=== PATIENT | female | born 1955 | race African-American/Black ===

== ENCOUNTER → 2020-02-20 11:07 | Outpatient (BNVA) | payer OTHER, SELFPAY | PROVIDERS: PCP Internal Medicine; Visit Provider Hospitalist | DX: Z13.89 Encounter for screening for other disorder (principal) | CPT/HCPCS: Q3014 ==

== ENCOUNTER → 2020-08-19 10:59 | Outpatient (BNVA) | payer OTHER, SELFPAY | PROVIDERS: PCP Internal Medicine; Visit Provider Hospitalist | DX: J33.9 Nasal polyp, unspecified (principal); J45.50 Severe persistent asthma, uncomplicated | CPT/HCPCS: 99212 ==

== ENCOUNTER → 2021-04-21 11:00 | Outpatient (BNVA) | payer OTHER, SELFPAY | PROVIDERS: PCP Internal Medicine; Visit Provider Hospitalist | DX: J45.50 Severe persistent asthma, uncomplicated (principal); J33.9 Nasal polyp, unspecified; G47.33 Obstructive sleep apnea (adult) (pediatric); Z99.89 Dependence on other enabling machines and devices | CPT/HCPCS: 99212 ==

== ENCOUNTER → 2022-04-13 10:57 | Outpatient (BNVA) | payer OTHER, SELFPAY | PROVIDERS: PCP Internal Medicine; Visit Provider Hospitalist | DX: J45.50 Severe persistent asthma, uncomplicated (principal); J33.9 Nasal polyp, unspecified; G47.33 Obstructive sleep apnea (adult) (pediatric); Z79.899 Other long term (current) drug therapy; Z99.89 Dependence on other enabling machines and devices | CPT/HCPCS: 99212 ==

== ENCOUNTER 2022-10-12 10:51 | Outpatient (AMB) | payer OTHER, SELFPAY ==
[2022-10-12 11:00] VITALS: BP 128/60; PULSE 90; O2SAT 98; BMI 29.2
--- NOTE | 2022-10-12 11:00 | A.OFFVIS_ITS ---
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 She is on maximum respiratory therapy at this time. She did take Nucala for some time but it was not working any longer. She has been on Fosenra now for a couple months. This appears to be more effective for her. She is breathing better. Although, she still has a significant nasal polyposis. She will try some Sudafed. She is continue with the 90 bilateral and also with budesonide rinsing. 10/19/2019. The patient is here for pulmonary follow-up visit. She has continued on her respiratory regimen. She is continue on the Fosenra every 2 months. However, her nasal polyposis has not gotten any better. Actually have gotten worse based on her ENT visit. Therefore, the Fosenra is only partially helping her symptoms. We did do blood work recently demonstrating that her eosinophils have improved on the Fosenra however, her IgE level was indeed elevated. At this time Dupixent will be a better medication for her based on the fact that she still has significant symptoms from her nasal polyposis. The patient is agreeable to switch over to Dupixent at this time. 10/12/2022 the patient is here for a pulmonary follow-up visit. Overall she is continues to do very well on the Dupixent. She has not required any prednisone or any rescue albuterol. Her nasal polyps have significantly decreased sided in her breathing is significantly better. In the meantime she received her replacement CPAP. She does have a [employer] dream station 2. The CPAP therapy has been effective and beneficial. She does use it for more than 4 hours a night. [facility] Medical History (Updated 10/12/22 @ 11:25 by Jayden Gaytan MD) Murmur Nasal polyps FROILAN on CPAP Severe persistent asthma Social History (Updated 08/19/20 @ 11:06 by JOSHUA Knight) Patient Tobacco Use Status: Never used Tobacco Review of Systems Const Denies night sweats ENT Denies change in voice, Denies lip swelling, Denies mouth pain, Reports nasal congestion, Reports nasal discharge and Denies tongue swelling Card Denies chest pain Resp Denies chest congestion and Reports cough GI Denies abdominal pain Musc Denies no additional complaints Neuro Denies Neuro-related abnormal movements Psych Denies no additional complaints Weston/Lymph Denies easy bleeding and Denies lymphadenopathy Aller/Immun Denies lip swelling and Denies tongue swelling Physical Exam Vital Signs: Last Vital Signs Pulse 90 10/12/22 11:00 BP 128/60 10/12/22 11:00 Pulse Ox 98 10/12/22 11:00 Oxygen Delivery Method Room Air 10/12/22 11:00 BMI result Body Mass Index 29.2 Const General: alert HEENT General nose exam: No nasal polyps present, Abnormal mucous membranes and turbinates present boggy and erythematous, Nasal discharge present and no nasal polyps Neck Neck: Yes normal visual inspection, Yes full ROM and Yes no lymphadenopathy Chest Chest palpation & inspection: normal inspection of the chest Resp Auscultation: clear to auscultation bilaterally, no rhonchi and no wheezes Cardio Rate: regular rate Rhythm: regular rhythm Heart sounds: S1 normal heart sound present, S2 normal heart sound present and Murmur heart sound present systolic II/ and at the right sternal border GI Palpation (GI): Soft to palpation and nontender Auscultation: normal bowel sounds Skin General skin exam: rashes and/or lesions noted Assessment & Plan Assessment & Plan (1) Nasal polyps: Comment: better Code(s): J33.9 - Nasal polyp, unspecified (2) Severe persistent asthma: Code(s): J45.50 - Severe persistent asthma, uncomplicated Qualifiers: Asthma complication type: uncomplicated Qualified Code(s): J45.50 - Severe persistent asthma, uncomplicated (3) FROILAN on CPAP: Code(s): G47.33 - Obstructive sleep apnea (adult) (pediatric); Z99.89 - Dependence on other enabling machines and devices (4) Murmur: Code(s): R01.1 - Cardiac murmur, unspecified Plan Continue Dupixent every 2 weeks continue singular to 5 mg daily, ok to take seasonally (Summer is her worse season. Better in the winter) Continue Zyrtec Nebulized therapy as needed CPAP, Dream station 2 F/U with PCP re: murmur Follow-up in the Spring 2023 Coding Level of Care Code Est Pt Level 4 (50954) Diagnoses Nasal polyps J33.9 Severe persistent asthma J45.50 Asthma complication type: uncomplicated FROILAN on CPAP G47.33; Z99.89 Murmur R01.1
== END 2022-10-12 11:31 | disposition home or self-care (01) ==
PROVIDERS: PCP Internal Medicine; Visit Provider Hospitalist
DX: J33.9 Nasal polyp, unspecified (principal); J45.50 Severe persistent asthma, uncomplicated; G47.33 Obstructive sleep apnea (adult) (pediatric); Z99.89 Dependence on other enabling machines and devices; R01.1 Cardiac murmur, unspecified
CPT/HCPCS: 99214

== ENCOUNTER → 2022-10-12 10:51 | Outpatient (BNVA) | payer OTHER, SELFPAY | PROVIDERS: Visit Provider Hospitalist | DX: J45.50 Severe persistent asthma, uncomplicated (principal); J33.9 Nasal polyp, unspecified; G47.33 Obstructive sleep apnea (adult) (pediatric); R01.1 Cardiac murmur, unspecified; Z79.899 Other long term (current) drug therapy; Z99.89 Dependence on other enabling machines and devices | CPT/HCPCS: 99212 ==

== ENCOUNTER 2023-06-14 10:50 | Outpatient (AMB) | payer OTHER, SELFPAY ==
[2023-06-14 10:55] VITALS: PULSE 90; O2SAT 95; BMI 29.2
--- NOTE | 2023-06-14 10:55 | MHC.OFFVIS ---
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 She is on maximum respiratory therapy at this time. She did take Nucala for some time but it was not working any longer. She has been on Fosenra now for a couple months. This appears to be more effective for her. She is breathing better. Although, she still has a significant nasal polyposis. She will try some Sudafed. She is continue with the 90 bilateral and also with budesonide rinsing. 10/19/2019. The patient is here for pulmonary follow-up visit. She has continued on her respiratory regimen. She is continue on the Fosenra every 2 months. However, her nasal polyposis has not gotten any better. Actually have gotten worse based on her ENT visit. Therefore, the Fosenra is only partially helping her symptoms. We did do blood work recently demonstrating that her eosinophils have improved on the Fosenra however, her IgE level was indeed elevated. At this time Dupixent will be a better medication for her based on the fact that she still has significant symptoms from her nasal polyposis. The patient is agreeable to switch over to Dupixent at this time. 10/12/2022 the patient is here for a pulmonary follow-up visit. Overall she is continues to do very well on the Dupixent. She has not required any prednisone or any rescue albuterol. Her nasal polyps have significantly decreased sided in her breathing is significantly better. In the meantime she received her replacement CPAP. She does have a [email or web address] dream station 2. The CPAP therapy has been effective and beneficial. She does use it for more than 4 hours a night. 06/14/2023 the patient is here for pulmonary follow-up visit. Overall she is doing well. She continues on Dupixent is very affecting beneficial. Although she has been noticing increasing nasal congestion. This has been happening for the last few weeks. Likely secondary to the transition to the springtime. She keeps the Dupixent every 2 weeks. She is wondering about extending but I did not recommend she do that since the medication wears off and then she starts becoming symptomatic. The patient needs to start nasal therapy. Will provide her with allergy and cortical steroid therapy for her nose. If the patient is no better she will call the office. The meantime she has been using the CPAP. The CPAP therapy continues be very affecting beneficial. She does have a dream Station so I do not have access to download the therapy although she states that it works very well for her. She does use it between 8-10 hours sometimes. And she does wake up rested. Her [place] score is 5/24. Therefore the therapy as effective. She will continue to use it as prescribed. [facility] Medical History (Updated 10/12/22 @ 11:25 by Jayden Gaytan MD) Murmur FROILAN on CPAP Nasal polyps Severe persistent asthma Social History (Updated 08/19/20 @ 11:06 by JOSHUA Knight) Patient Tobacco Use Status: Never used Tobacco Review of Systems Const Denies night sweats ENT Denies change in voice, Denies lip swelling, Denies mouth pain, Reports nasal congestion, Reports nasal discharge, Reports nasal obstruction, Reports post nasal drip and Denies tongue swelling Card Denies chest pain Resp Denies chest congestion and Reports cough GI Denies abdominal pain Musc Denies no additional complaints Neuro Denies Neuro-related abnormal movements Psych Denies no additional complaints Weston/Lymph Denies easy bleeding and Denies lymphadenopathy Aller/Immun Denies lip swelling and Denies tongue swelling Physical Exam Vital Signs: Last Vital Signs Pulse 90 06/14/23 10:55 Pulse Ox 95 06/14/23 10:55 Oxygen Delivery Method Room Air 06/14/23 10:55 BMI result Body Mass Index 29.2 Const General: alert HEENT General nose exam: No nasal polyps present, Abnormal mucous membranes and turbinates present boggy and erythematous, Nasal discharge present and no nasal polyps Neck Neck: Yes normal visual inspection, Yes full ROM and Yes no lymphadenopathy Chest Chest palpation & inspection: normal inspection of the chest Resp Auscultation: no rhonchi, no wheezes and diminished lung sounds Cardio Rate: regular rate Rhythm: regular rhythm Heart sounds: S1 normal heart sound present, S2 normal heart sound present and Murmur heart sound present systolic II/ and at the right sternal border GI Palpation (GI): Soft to palpation and nontender Auscultation: normal bowel sounds Skin General skin exam: rashes and/or lesions noted Assessment & Plan Assessment & Plan (1) Nasal polyps: Comment: better Code(s): J33.9 - Nasal polyp, unspecified Category: Medical (2) Severe persistent asthma: Code(s): J45.50 - Severe persistent asthma, uncomplicated Category: Medical Qualifiers: Asthma complication type: uncomplicated Qualified Code(s): J45.50 - Severe persistent asthma, uncomplicated (3) FROILAN on CPAP: Code(s): G47.33 - Obstructive sleep apnea (adult) (pediatric); Z99.89 - Dependence on other enabling machines and devices Category: Medical (4) Murmur: Code(s): R01.1 - Cardiac murmur, unspecified Category: Medical Plan Continue Dupixent every 2 weeks continue singular to 5 mg daily, ok to take seasonally (Summer is her worse season. Better in the winter) Continue Zyrtec Nebulized therapy as needed CPAP, Dream station 2 Add Azteline nasal spray Add Fluticasone nasal spray Follow-up in 6-8 months Orders: Orders Pneumococcal 20 Immunization Today Z23 - Encounter for immunization Medications: New fluticasone propionate 50 mcg/actuation 2 sprays intranasal DAILY 15.8 mL 11RF 30 days J31.0 - Chronic rhinitis azelastine administer into each nostril 2 sprays intranasal BID 30 mL 6RF 30 days Coding Level of Care Code Est Pt Level 4 (94669) Diagnoses Nasal polyps J33.9 Severe persistent asthma without complication J45.50 Asthma complication type: uncomplicated FROILAN on CPAP G47.33; Z99.89 Murmur R01.1 Time Spent (min) 17
== END 2023-06-14 11:15 | disposition home or self-care (01) ==
PROVIDERS: PCP Internal Medicine; Visit Provider Hospitalist
DX: J33.9 Nasal polyp, unspecified (principal); J45.50 Severe persistent asthma, uncomplicated; G47.33 Obstructive sleep apnea (adult) (pediatric); Z99.89 Dependence on other enabling machines and devices; R01.1 Cardiac murmur, unspecified; Z23 Encounter for immunization
CPT/HCPCS: 99214

== ENCOUNTER → 2023-06-14 10:50 | Outpatient (BNVA) | payer OTHER, SELFPAY | PROVIDERS: PCP Internal Medicine; Visit Provider Hospitalist | DX: J45.50 Severe persistent asthma, uncomplicated (principal); J33.9 Nasal polyp, unspecified; G47.33 Obstructive sleep apnea (adult) (pediatric); R01.1 Cardiac murmur, unspecified; Z99.89 Dependence on other enabling machines and devices; Z23 Encounter for immunization | CPT/HCPCS: 90471; 90677; 99212 ==

== ENCOUNTER 2023-12-21 10:53 | Outpatient (AMB) | payer OTHER, SELFPAY ==
[2023-12-21 10:54] VITALS: BP 134/80; PULSE 100; O2SAT 98; BMI 33.0
--- NOTE | 2023-12-21 10:54 | MHC.OFFVIS ---
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 Rod Piler: Rod Piler offered & declined Accompanied by: Self / Same As Patient Allergies No Known Allergies [No Known Allergies*] Allergy (Verified 12/21/23 11:01) Medication List - Last Reconciled 12/21/23 by Leah Neely LPN albuterol sulfate 2.5 mg (3 mL) inhalation Q6H PRN 30 days albuterol sulfate 90 mcg/actuation 2 inhalations inhalation Q6H PRN 30 days azelastine 2 sprays intranasal BID 30 days cetirizine 10 mg PO DAILY dupilumab (Dupixent) 300 mg (2 mL) subcut Q2W flu vacc [id number](65yr up)-PF mL IM fluticasone propionate 50 mcg/actuation 0 mcg intranasal fluticasone propionate 50 mcg/actuation 2 sprays intranasal DAILY 30 days hydrochlorothiazide 25 mg PO DAILY montelukast 5 mg PO BEDTIME nebulizers As directed olanzapine 7.5 mg PO BEDTIME HPI Comments Details: The patient is a 68-year-old woman known nasal polyposis and also severe persistent asthma. She is on maximum respiratory therapy at this time. She did take Nucala for some time but it was not working any longer. She has been on Fosenra now for a couple months. This appears to be more effective for her. She is breathing better. Although, she still has a significant nasal polyposis. She will try some Sudafed. She is continue with the 90 bilateral and also with budesonide rinsing. 10/19/2019. The patient is here for pulmonary follow-up visit. She has continued on her respiratory regimen. She is continue on the Fosenra every 2 months. However, her nasal polyposis has not gotten any better. Actually have gotten worse based on her ENT visit. Therefore, the Fosenra is only partially helping her symptoms. We did do blood work recently demonstrating that her eosinophils have improved on the Fosenra however, her IgE level was indeed elevated. At this time Dupixent will be a better medication for her based on the fact that she still has significant symptoms from her nasal polyposis. The patient is agreeable to switch over to Dupixent at this time. 10/12/2022 the patient is here for a pulmonary follow-up visit. Overall she is continues to do very well on the Dupixent. She has not required any prednisone or any rescue albuterol. Her nasal polyps have significantly decreased sided in her breathing is significantly better. In the meantime she received her replacement CPAP. She does have a [employer] dream station 2. The CPAP therapy has been effective and beneficial. She does use it for more than 4 hours a night. 06/14/2023 the patient is here for pulmonary follow-up visit. Overall she is doing well. She continues on Dupixent is very affecting beneficial. Although she has been noticing increasing nasal congestion. This has been happening for the last few weeks. Likely secondary to the transition to the . She keeps the Dupixent every 2 weeks. She is wondering about extending but I did not recommend she do that since the medication wears off and then she starts becoming symptomatic. The patient needs to start nasal therapy. Will provide her with allergy and cortical steroid therapy for her nose. If the patient is no better she will call the office. The meantime she has been using the CPAP. The CPAP therapy continues be very affecting beneficial. She does have a dream Station so I do not have access to download the therapy although she states that it works very well for her. She does use it between 8-10 hours sometimes. And she does wake up rested. Her [place] score is 5/24. Therefore the therapy as effective. She will continue to use it as prescribed. 12/21/2023 the patient is here for a pulmonary follow-up visit. Overall she is doing okay. She was exposed to sick contacts. Her sister has been coughing now for few months. She is wondering if she has pertussis. Now the patient has been starting to develop a cough and is croupy in nature and she is concerned. Otherwise she continues at the Dupixent and he has been very helpful. The patient does have some nasal congestion but minimal. Her lungs sound well and she does have unclear nasal passage. She did cough in the office and she did some croupy. Therefore will give her azithromycin for 5 days to treat her for potential pertussis. The patient also needs to get her vaccines. She has not gotten any vaccines as of yet as far as the flu RSV and COVID. I did give her instructions on how to do so. She should also make sure her Tdap is up-to-date. No recent imaging studies to review. Will follow-up in 6-8 months if she has any issues prior to that she will call. In the meantime she will continue with the Dupixent injection. She continues her CPAP. The CPAP has been effective and beneficial. SHe uses it more than 4 hours/night. [facility] Medical History (Updated 10/12/22 @ 11:25 by Jayden Gaytan MD) Murmur FROILAN on CPAP Nasal polyps Severe persistent asthma Social History (Updated 12/21/23 @ 11:03 by Leah Neely LPN) Patient Tobacco Use Status: Never used Tobacco Review of Systems Const Denies night sweats ENT Denies change in voice, Denies lip swelling, Denies mouth pain, Reports nasal congestion, Reports nasal discharge, Reports nasal obstruction, Reports post nasal drip and Denies tongue swelling Card Denies chest pain Resp Reports chest congestion and Reports cough GI Denies abdominal pain Musc Denies no additional complaints Neuro Denies Neuro-related abnormal movements Psych Denies no additional complaints Weston/Lymph Denies easy bleeding and Denies lymphadenopathy Aller/Immun Denies lip swelling and Denies tongue swelling Physical Exam Vital Signs: Last Vital Signs Pulse 100 12/21/23 10:54 BP 134/80 12/21/23 10:54 Pulse Ox 98 12/21/23 10:54 Oxygen Delivery Method Room Air 12/21/23 10:54 BMI result Body Mass Index 33.0 Const General: alert HEENT General nose exam: No nasal polyps present, Abnormal mucous membranes and turbinates present boggy and erythematous, Nasal discharge present and no nasal polyps Neck Neck: Yes normal visual inspection, Yes full ROM and Yes no lymphadenopathy Chest Chest palpation & inspection: normal inspection of the chest Resp Effort & Inspection: Actively coughing Quality: whooping Auscultation: no rhonchi, no wheezes and diminished lung sounds Cardio Rate: regular rate Rhythm: regular rhythm Heart sounds: S1 normal heart sound present, S2 normal heart sound present and Murmur heart sound present systolic II/ and at the right sternal border GI Palpation (GI): Soft to palpation and nontender Auscultation: normal bowel sounds Skin General skin exam: rashes and/or lesions noted Assessment & Plan Assessment & Plan (1) Nasal polyps: Comment: better Code(s): J33.9 - Nasal polyp, unspecified Category: Medical (2) Severe persistent asthma: Code(s): J45.50 - Severe persistent asthma, uncomplicated Category: Medical Qualifiers: Asthma complication type: uncomplicated Qualified Code(s): J45.50 - Severe persistent asthma, uncomplicated (3) FROILAN on CPAP: Code(s): G47.33 - Obstructive sleep apnea (adult) (pediatric); Z99.89 - Dependence on other enabling machines and devices Category: Medical (4) Murmur: Code(s): R01.1 - Cardiac murmur, unspecified Category: Medical Plan Continue Dupixent every 2 weeks continue singular to 5 mg daily, ok to take seasonally (Summer is her worse season. Better in the winter) Continue Zyrtec Nebulized therapy as needed CPAP, Dream station 2 Azteline nasal spray luticasone nasal spray Follow-up in 6-8 months Medications: New azithromycin 500 mg PO DAILY 5 tabs 0RF 5 days benzonatate 200 mg PO BID PRN 60 caps 6RF cough 30 days Refilled montelukast 5 mg PO BEDTIME 90 tabs 3RF Coding Level of Care Code Est Pt Level 4 (87248) Complex EM visit Add On G2211 Diagnoses Nasal polyps J33.9 Severe persistent asthma without complication J45.50 Asthma complication type: uncomplicated FROILAN on CPAP G47.33; Z99.89 Murmur R01.1 Time Spent (min) 16
== END 2023-12-21 11:30 | disposition home or self-care (01) ==
PROVIDERS: PCP Internal Medicine; Visit Provider Hospitalist
DX: J33.9 Nasal polyp, unspecified (principal); J45.50 Severe persistent asthma, uncomplicated; G47.33 Obstructive sleep apnea (adult) (pediatric); Z99.89 Dependence on other enabling machines and devices; R01.1 Cardiac murmur, unspecified
CPT/HCPCS: 99214; G2211

== ENCOUNTER → 2023-12-21 10:53 | Outpatient (BNVA) | payer OTHER, SELFPAY | PROVIDERS: PCP Internal Medicine; Visit Provider Hospitalist | DX: J45.50 Severe persistent asthma, uncomplicated (principal); J33.9 Nasal polyp, unspecified; G47.33 Obstructive sleep apnea (adult) (pediatric); R01.1 Cardiac murmur, unspecified; Z99.89 Dependence on other enabling machines and devices | CPT/HCPCS: 99212 ==

== ENCOUNTER 2024-06-19 10:56 | Outpatient (AMB) | payer OTHER, SELFPAY ==
[2024-06-19 10:58] VITALS: BP 156/68; PULSE 104; O2SAT 96; BMI 32.2
--- NOTE | 2024-06-19 10:58 | MHC.OFFVIS ---
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 She is on maximum respiratory therapy at this time. She did take Nucala for some time but it was not working any longer. She has been on Fosenra now for a couple months. This appears to be more effective for her. She is breathing better. Although, she still has a significant nasal polyposis. She will try some Sudafed. She is continue with the 90 bilateral and also with budesonide rinsing. 10/19/2019. The patient is here for pulmonary follow-up visit. She has continued on her respiratory regimen. She is continue on the Fosenra every 2 months. However, her nasal polyposis has not gotten any better. Actually have gotten worse based on her ENT visit. Therefore, the Fosenra is only partially helping her symptoms. We did do blood work recently demonstrating that her eosinophils have improved on the Fosenra however, her IgE level was indeed elevated. At this time Dupixent will be a better medication for her based on the fact that she still has significant symptoms from her nasal polyposis. The patient is agreeable to switch over to Dupixent at this time. 10/12/2022 the patient is here for a pulmonary follow-up visit. Overall she is continues to do very well on the Dupixent. She has not required any prednisone or any rescue albuterol. Her nasal polyps have significantly decreased sided in her breathing is significantly better. In the meantime she received her replacement CPAP. She does have a [employer] dream station 2. The CPAP therapy has been effective and beneficial. She does use it for more than 4 hours a night. 06/14/2023 the patient is here for pulmonary follow-up visit. Overall she is doing well. She continues on Dupixent is very affecting beneficial. Although she has been noticing increasing nasal congestion. This has been happening for the last few weeks. Likely secondary to the transition to the springtime. She keeps the Dupixent every 2 weeks. She is wondering about extending but I did not recommend she do that since the medication wears off and then she starts becoming symptomatic. The patient needs to start nasal therapy. Will provide her with allergy and cortical steroid therapy for her nose. If the patient is no better she will call the office. The meantime she has been using the CPAP. The CPAP therapy continues be very affecting beneficial. She does have a dream Station so I do not have access to download the therapy although she states that it works very well for her. She does use it between 8-10 hours sometimes. And she does wake up rested. Her [place] score is 5/24. Therefore the therapy as effective. She will continue to use it as prescribed. 12/21/2023 the patient is here for a pulmonary follow-up visit. Overall she is doing okay. She was exposed to sick contacts. Her sister has been coughing now for few months. She is wondering if she has pertussis. Now the patient has been starting to develop a cough and is croupy in nature and she is concerned. Otherwise she continues at the Dupixent and he has been very helpful. The patient does have some nasal congestion but minimal. Her lungs sound well and she does have unclear nasal passage. She did cough in the office and she did some croupy. Therefore will give her azithromycin for 5 days to treat her for potential pertussis. The patient also needs to get her vaccines. She has not gotten any vaccines as of yet as far as the flu RSV and COVID. I did give her instructions on how to do so. She should also make sure her Tdap is up-to-date. No recent imaging studies to review. Will follow-up in 6-8 months if she has any issues prior to that she will call. In the meantime she will continue with the Dupixent injection. She continues her CPAP. The CPAP has been effective and beneficial. SHe uses it more than 4 hours/night. 06/19/2024 the patient is here for pulmonary follow-up visit. For the last several weeks she had been sick with a respiratory illness. She also has significant sinus congestion. She took wxii-llj-ixcvxpl Mucinex and also took some Sudafed. She did not require any prednisone or antibiotics at this time. Unfortunately she did not have any nebulized solutions she could not use a nebulizer otherwise she would have used it. She is feeling better although she still has a congested cough with yellowish phlegm. Jnkb-ue-ybawcqqp severity. In addition to that on examination is noted that heart was elevated about 104. This was at rest. On further questioning the patient has been taking Sudafed. I did encourage him not to use Sudafed any longer since she is very sensitive to it. If the heart rate continues to be elevated she also needs to follow-up with her primary care doctor. For now will go ahead and starting some doxycycline for postviral bacterial infection of the lungs and also she can use Xopenex as needed because of the increased heart rate. The patient will call her primary care doctor if she continues to be tachycardic and she will have an x-ray with us. She will follow up sometime in the fall of 2024. If she has any other issues or any other concerns she will call for an earlier assessment. [facility] Medical History (Updated 06/19/24 @ 22:35 by Jayden Gaytan MD) Murmur FROILAN on CPAP Nasal polyps Severe persistent asthma Social History Patient Tobacco Use Status: Never used Tobacco Review of Systems Const Denies chills, Denies fatigue, Denies fever(s), Denies weight gain and Denies weight loss ENT Denies dizziness, Denies lip swelling and Denies tongue swelling Card Denies chest pain, Denies leg edema, Denies lightheadedness, Denies palpitations, Denies dyspnea on exertion, Denies orthopnea and Denies other Resp Reports change in phlegm color, Reports chest congestion, Reports cough and Denies dyspnea on exertion GI Denies hematochezia and Denies change in stool character Musc Denies abnormal gait, Denies muscle weakness, Denies numbness, Denies radiating pain into limb and Denies tingling Neuro Denies abnormal gait, Denies dizziness, Denies numbness and Denies tingling Psych Denies no additional complaints Endo Denies fatigue and Denies palpitations Weston/Lymph Denies easy bleeding and Denies lymphadenopathy Aller/Immun Denies lip swelling and Denies tongue swelling Physical Exam Vital Signs: Last Vital Signs Pulse 104 H 06/19/24 10:58 BP 156/68 H 06/19/24 10:58 Pulse Ox 96 06/19/24 10:58 Oxygen Delivery Method Room Air 06/19/24 10:58 BMI result Body Mass Index 32.2 Const General: alert HEENT General nose exam: No nasal polyps present, Abnormal mucous membranes and turbinates present boggy and erythematous, Nasal discharge present and no nasal polyps Neck Neck: Yes normal visual inspection, Yes full ROM and Yes no lymphadenopathy Chest Chest palpation & inspection: normal inspection of the chest Resp Effort & Inspection: Actively coughing Quality: whooping Auscultation: no rhonchi, no wheezes and diminished lung sounds Cardio Rate: regular rate Rhythm: regular rhythm Heart sounds: S1 normal heart sound present, S2 normal heart sound present and Murmur heart sound present systolic II/ and at the right sternal border GI Palpation (GI): Soft to palpation and nontender Auscultation: normal bowel sounds Skin General skin exam: rashes and/or lesions noted Assessment & Plan Assessment & Plan (1) Nasal polyps: Comment: better Code(s): J33.9 - Nasal polyp, unspecified Category: Medical (2) Severe persistent asthma: Code(s): J45.50 - Severe persistent asthma, uncomplicated Category: Medical Qualifiers: Asthma complication type: uncomplicated Qualified Code(s): J45.50 - Severe persistent asthma, uncomplicated (3) FROILAN on CPAP: Code(s): G47.33 - Obstructive sleep apnea (adult) (pediatric); Z99.89 - Dependence on other enabling machines and devices Category: Medical (4) Murmur: Code(s): R01.1 - Cardiac murmur, unspecified Category: Medical (5) Bronchitis: Code(s): J40 - Bronchitis, not specified as acute or chronic Category: Medical Plan start Doxycycline Continue Dupixent every 2 weeks continue singular to 5 mg daily, ok to take seasonally (Summer is her worse season. Better in the winter) Continue Zyrtec Nebulized therapy as needed CPAP, Dream station 2 Azteline nasal spray Fluticasone nasal spray CXR Follow-up in 6-8 months Orders: Orders XR chest 2V Today J45.50 - Severe persistent asthma, uncomplicated Medications: New levalbuterol HCl 1.25 mg (3 mL) inhalation DAILY 30 days 90 mL 0RF J44.9 - Chronic obstructive pulmonary disease, unspecified doxycycline hyclate 100 mg PO BID 20 caps 0RF 10 days Coding Level of Care Code Est Pt Level 4 (62123) Complex EM visit Add On G2211 Diagnoses Nasal polyps J33.9 Severe persistent asthma without complication J45.50 Asthma complication type: uncomplicated FROILAN on CPAP G47.33; Z99.89 Murmur R01.1 Bronchitis J40 Time Spent (min) 17
--- OUTSIDE RECORDS SUMMARY | 2024-06-19 12:24 | XMS_ITS | Clinical Summary ---
Author Organization [facility] ity Address [address] [place] [address] Care Team Providers Care Jewel Setter Name Role Phone Malaika Fabian MD Primary Care Provider [phone] Social History Tobacco Use Types Packs/Day Years Used Date Smoking Tobacco: Never Smokeless Tobacco: Never Comments Unknown Sex and Gender Information Value Date Recorded Sex Assigned at Not on file Legal Sex Female 9:29 AM EST Gender Identity Not on file Sexual Orientation Not on file Obstetrics History Plan of Treatment Health Maintenance Due Date Last Done Comments Breast Cancer Screening 1955 DTaP,Tdap,and Td Vaccines (1 - Tdap) 02/09/1972 Zoster Vaccines (1 of 2) 2003 RSV Immunization Adult Patie nts (1 - Risk 60-74 years 1-dose series) 2013 Pneumococcal Vaccine: 50+ Ye ars (2 of 2 - PPSV23) 04/05/2018 2018 COVID-19 Vaccine ( - 2023-2 5 season) 2023 Colorectal Cancer Screening: Colonoscopy 01/02/2024 Depression Screening 01/02/2024 Falls Risk Assessment 01/02/2024 Hepatitis C Screening 01/02/2024 Osteoporosis Screening (Bone Density Screening) 01/02/2024 Social Influencers of Health Screening 01/02/2024 Influenza Vaccine (Season Ended) 2024 HIB Vaccines Aged Out No longer eligi ble based on patient's age to complete this topic HPV Vaccines Aged Out No longer eligi ble based on patient's age to complete this topic Hepatitis A Vaccines Aged Out No long er eligible based on patient's age to complete this topic Hepatitis B Vaccines Aged Out No long er eligible based on patient's age to complete this topic IPV Vaccines Aged Out No longer eligi ble based on patient's age to complete this topic MMR Vaccines Aged Out No longer eligi ble based on patient's age to complete this topic Meningococcal ACWY Vaccine Aged Out N o longer eligible based on patient's age to complete this topic Meningococcal B Vaccine Aged Out No l onger eligible based on patient's age to complete this topic RSV Immunization Patients Un edwige 20 months Aged Out No longer eligible b ased on patient's age to complete this topic Varicella Vaccines Aged Out No longer eligible based on patient's age to complete this topic Care Teams Jewel Setter Relationship Specialty Start Date End Date [place] [address] PCP - General Internal Medicine 01/10/18
--- OUTSIDE RECORDS SUMMARY | 2024-06-19 12:24 | XMS_ITS | Continuity of Care Document ---
Author Organization [facility] Address [address] [address] Phone Care Team Providers Care Prize Fighter Name Role Phone Unavailable Unavailable Unavailable Advance Directives Directive Yes / No Effective Date File Name No Information Encounters Encounter Description Practice Location Reason(s) For Visit Diagnoses Date Provider [facility], [address] [address], [place], [place], [id number], tel:[phone] No Information 2015 No Information Family History Family Member Type Diagnosis Age At Onset No Information Payers Payer name Insurance type Covered republican ID Authoriza tion(s) No Information Social History Type Description Quantity Date Captured Comments Sex Female Smoking Status No Information Chief Complaint And Reason For Visit No Information History Of Present Illness Encounter Date Complaint History Of Prese nt Illness No Information Instructions Date Instruction Additional Infor mation No Information Assessments Type Assessment Date No Information
== END 2024-06-19 11:22 | disposition home or self-care (01) ==
LOC: HO.HPS 10:57
PROVIDERS: PCP Internal Medicine; Visit Provider Hospitalist
DX: J33.9 Nasal polyp, unspecified (principal); J45.50 Severe persistent asthma, uncomplicated; G47.33 Obstructive sleep apnea (adult) (pediatric); Z99.89 Dependence on other enabling machines and devices; R01.1 Cardiac murmur, unspecified; J40 Bronchitis, not specified as acute or chronic
CPT/HCPCS: 99214; G2211

== ENCOUNTER → 2024-06-19 10:56 | Outpatient (BNVA) | payer OTHER, SELFPAY | PROVIDERS: PCP Internal Medicine; Visit Provider Hospitalist | DX: J45.50 Severe persistent asthma, uncomplicated (principal); J33.9 Nasal polyp, unspecified; J40 Bronchitis, not specified as acute or chronic; R01.1 Cardiac murmur, unspecified; G47.33 Obstructive sleep apnea (adult) (pediatric); Z99.89 Dependence on other enabling machines and devices | CPT/HCPCS: 99212 ==

== ENCOUNTER 2024-12-17 11:01 | Outpatient (AMB) | payer OTHER, SELFPAY ==
--- OUTSIDE RECORDS SUMMARY | 2015-12-22 10:54 | XMS_ITS | Continuity of Care Document ---
Author Organization [facility] Address [address] [address] Phone Care Team Providers Care Water Project Manager Name Role Phone Maicol Corey DO Unavailable Unavailable Advance Directives Directive Yes / No Effective Date File Name No Information Encounters Encounter Description Practice Location Reason(s) For Visit Diagnoses Date Provider [facility], [address], [id number], [place] tel:[phone] [address] [place] [address] No Information 2015 Madhav Milian. [address] [place] [address], [id number], [place]. tel:[phone] Family History Family Member Type Diagnosis Age At Onset No Information Payers Payer name Insurance type Covered green party ID Authoriza tion(s) No Information Social History Type Description Quantity Date Captured Comments Sex Female Smoking Status No Information Chief Complaint And Reason For Visit No Information History Of Present Illness Encounter Date Complaint History Of Prese nt Illness No Information Instructions Date Instruction Additional Infor mation No Information Assessments Type Assessment Date No Information
[2024-12-17 11:07] VITALS: BP 152/64; PULSE 97; O2SAT 98; BMI 33.0
--- NOTE | 2024-12-17 11:07 | MHC.OFFVIS ---
Vital Signs 12/17/24 11:07 Height 5 ft 3 in Weight 186 lb 4.65 oz BMI 33.0 BP 152/64 H Blood Pressure Location Lt brachial Position Sitting Pulse 97 Pulse Source Pulse Oximeter Pulse Oximetry (%) 98 Oxygen Delivery Method Room Air Intake Visit Reasons: Asthma Haulage Boss Required: No Accompanied by: Sister Allergies No Known Allergies (No Known Allergies*) Allergy (Verified 12/17/24 11:10) HPI Comments Details: The patient is a 69-year-old woman known nasal polyposis and also severe persistent asthma. She is on maximum respiratory therapy at this time. She did take Nucala for some time but it was not working any longer. She has been on Fosenra now for a couple months. This appears to be more effective for her. She is breathing better. Although, she still has a significant nasal polyposis. She will try some Sudafed. She is continue with the 90 bilateral and also with budesonide rinsing. 10/19/2019. The patient is here for pulmonary follow-up visit. She has continued on her respiratory regimen. She is continue on the Fosenra every 2 months. However, her nasal polyposis has not gotten any better. Actually have gotten worse based on her ENT visit. Therefore, the Fosenra is only partially helping her symptoms. We did do blood work recently demonstrating that her eosinophils have improved on the Fosenra however, her IgE level was indeed elevated. At this time Dupixent will be a better medication for her based on the fact that she still has significant symptoms from her nasal polyposis. The patient is agreeable to switch over to Dupixent at this time. 10/12/2022 the patient is here for a pulmonary follow-up visit. Overall she is continues to do very well on the Dupixent. She has not required any prednisone or any rescue albuterol. Her nasal polyps have significantly decreased sided in her breathing is significantly better. In the meantime she received her replacement CPAP. She does have a [employer] dream station 2. The CPAP therapy has been effective and beneficial. She does use it for more than 4 hours a night. 06/14/2023 the patient is here for pulmonary follow-up visit. Overall she is doing well. She continues on Dupixent is very affecting beneficial. Although she has been noticing increasing nasal congestion. This has been happening for the last few weeks. Likely secondary to the transition to the springtime. She keeps the Dupixent every 2 weeks. She is wondering about extending but I did not recommend she do that since the medication wears off and then she starts becoming symptomatic. The patient needs to start nasal therapy. Will provide her with allergy and cortical steroid therapy for her nose. If the patient is no better she will call the office. The meantime she has been using the CPAP. The CPAP therapy continues be very affecting beneficial. She does have a dream Station so I do not have access to download the therapy although she states that it works very well for her. She does use it between 8-10 hours sometimes. And she does wake up rested. Her [place] score is 5/24. Therefore the therapy as effective. She will continue to use it as prescribed. 12/21/2023 the patient is here for a pulmonary follow-up visit. Overall she is doing okay. She was exposed to sick contacts. Her sister has been coughing now for few months. She is wondering if she has pertussis. Now the patient has been starting to develop a cough and is croupy in nature and she is concerned. Otherwise she continues at the Dupixent and he has been very helpful. The patient does have some nasal congestion but minimal. Her lungs sound well and she does have unclear nasal passage. She did cough in the office and she did some croupy. Therefore will give her azithromycin for 5 days to treat her for potential pertussis. The patient also needs to get her vaccines. She has not gotten any vaccines as of yet as far as the flu RSV and COVID. I did give her instructions on how to do so. She should also make sure her Tdap is up-to-date. No recent imaging studies to review. Will follow-up in 6-8 months if she has any issues prior to that she will call. In the meantime she will continue with the Dupixent injection. She continues her CPAP. The CPAP has been effective and beneficial. SHe uses it more than 4 hours/night. 06/19/2024 the patient is here for pulmonary follow-up visit. For the last several weeks she had been sick with a respiratory illness. She also has significant sinus congestion. She took ekon-vjn-zcfwera Mucinex and also took some Sudafed. She did not require any prednisone or antibiotics at this time. Unfortunately she did not have any nebulized solutions she could not use a nebulizer otherwise she would have used it. She is feeling better although she still has a congested cough with yellowish phlegm. Pwik-ae-pzhfhgdp severity. In addition to that on examination is noted that heart was elevated about 104. This was at rest. On further questioning the patient has been taking Sudafed. I did encourage him not to use Sudafed any longer since she is very sensitive to it. If the heart rate continues to be elevated she also needs to follow-up with her primary care doctor. For now will go ahead and starting some doxycycline for postviral bacterial infection of the lungs and also she can use Xopenex as needed because of the increased heart rate. The patient will call her primary care doctor if she continues to be tachycardic and she will have an x-ray with us. She will follow up sometime in the fall of 2024. If she has any other issues or any other concerns she will call for an earlier assessment. 12/17/2024 the patient is here for pulmonary follow-up visit. Overall she is doing well. She continues on her inhalers with good response. She also continues with the Dupixent with very good response. She has no adverse effects of the injection. The patient did have a chest x-ray back in July 2024 which we reviewed demonstrating some minimal degree of scoliosis. We did talk about practicing good posture. In the meantime the patient also has been using her CPAP at nighttime. CPAP therapy has been affecting beneficial. She does use it for more than 4 hours a night and she looks forward to using her CPAP. The patient does have a dream Station 2. She will bring it into the next visit to make sure that is adequately treating her symptoms. She has been getting supplies through her [employer] regularly. No issues with that. The patient will follow-up in 6-8 months if she has any issues she can always call for an earlier assessment. [facility] Medical History (Updated 06/19/24 @ 22:35 by Jayden Gaytan MD) Murmur FROILAN on CPAP Nasal polyps Severe persistent asthma Social History Patient Tobacco Use Status: Never used Tobacco Review of Systems Const Denies chills, Denies fatigue, Denies fever(s), Denies weight gain and Denies weight loss ENT Denies dizziness, Denies lip swelling and Denies tongue swelling Card Denies chest pain, Denies leg edema, Denies lightheadedness, Denies palpitations, Denies dyspnea on exertion, Denies orthopnea and Denies other Resp Reports cough and Denies dyspnea on exertion GI Denies hematochezia and Denies change in stool character Musc Denies abnormal gait, Denies muscle weakness, Denies numbness, Denies radiating pain into limb and Denies tingling Neuro Denies abnormal gait, Denies dizziness, Denies numbness and Denies tingling Psych Denies no additional complaints Endo Denies fatigue and Denies palpitations [place]/Lymph Denies easy bleeding and Denies lymphadenopathy Aller/Immun Denies lip swelling and Denies tongue swelling Physical Exam Vital Signs: Last Vital Signs Pulse 97 12/17/24 11:07 BP 152/64 H 12/17/24 11:07 Pulse Ox 98 12/17/24 11:07 Oxygen Delivery Method Room Air 12/17/24 11:07 BMI result Body Mass Index 33.0 Const General: alert HEENT General nose exam: No nasal polyps present, Abnormal mucous membranes and turbinates present boggy and erythematous, Nasal discharge present and no nasal polyps Neck Neck: Yes normal visual inspection, Yes full ROM and Yes no lymphadenopathy Chest Chest palpation & inspection: normal inspection of the chest Resp Effort & Inspection: normal respiratory effort Auscultation: clear to auscultation bilaterally, no rhonchi and no wheezes Cardio Rate: regular rate Rhythm: regular rhythm Heart sounds: S1 normal heart sound present, S2 normal heart sound present and Murmur heart sound present systolic II/ and at the right sternal border GI Palpation (GI): Soft to palpation and nontender Auscultation: normal bowel sounds Skin General skin exam: rashes and/or lesions noted Office Procedures Flu Questionnaire Does the patient have a severe egg allergy?: No Does the patient have severe life threatening allergies?: No Does the patient have a fever or illness today?: No Has the patient ever had Guillain-Dudley Syndrome?: No Has the patient ever had any past reaction to a flu shot?: No Immunizations Fluarix [id number] (PF) 45 mcg (15 mcg x 3)/0.5 mL IM syringe Performing Provider: Jayden Gaytan MD Performing Location: [facility] Administered by: Judie Moura LPN on 12/17/24 11:39 Dose Route Admin Location Dispensed Lot Number Expiration Date NDC [employer] Permit Agent 0.5 mL IM Right Deltoid 0.5 mL [id number] 08/06/25 [id number] [employer] VIS Given Date VIS Provided VIS Publication Date 12/17/24 Single Vaccine 24 Eligibility Eligibility Date Funding Source Not [facility] Eligible 12/17/24 Private Assessment & Plan Assessment & Plan (1) Nasal polyps: Comment: better Code(s): J33.9 - Nasal polyp, unspecified Category: Medical (2) Severe persistent asthma: Code(s): J45.50 - Severe persistent asthma, uncomplicated Category: Medical Qualifiers: Asthma complication type: uncomplicated Qualified Code(s): J45.50 - Severe persistent asthma, uncomplicated (3) FROILAN on CPAP: Code(s): G47.33 - Obstructive sleep apnea (adult) (pediatric); Z99.89 - Dependence on other enabling machines and devices Category: Medical (4) Murmur: Code(s): R01.1 - Cardiac murmur, unspecified Category: Medical Plan Continue Dupixent every 2 weeks continue singular to 5 mg daily, ok to take seasonally (Summer is her worse season. Better in the winter) Continue Zyrtec Nebulized therapy as needed CPAP, Dream station 2 Azteline nasal spray Fluticasone nasal spray CXR-mild scoliosis Follow-up in 6-8 months Orders: Orders Influenza [id number] Immunization Today J45.50 - Severe persistent asthma, uncomplicated Coding Level of Care Code Est Pt Level 4 (40447) Complex EM visit Add On G2211 Diagnoses Nasal polyps J33.9 Severe persistent asthma without complication J45.50 Asthma complication type: uncomplicated FROILAN on CPAP G47.33; Z99.89 Murmur R01.1 Time Spent (min) 17
--- OUTSIDE RECORDS SUMMARY | 2024-12-17 13:22 | XMS_ITS | Clinical Summary ---
Author Organization [employer] [facility] ity Address [address] [place] [address] Care Team Providers Care Staff Psychiatrist Name Role Phone Malaika Fabian MD Primary Care Provider [phone] Social History Tobacco Use Types Packs/Day Years Used Date Smoking Tobacco: Never Smokeless Tobacco: Never Comments Unknown Sex and Gender Information Value Date Recorded Sex Assigned at Not on file Legal Sex Female 9:29 AM EST Gender Identity Not on file Sexual Orientation Not on file Obstetrics History Plan of Treatment Health Maintenance Due Date Last Done Comments Breast Cancer Screening 1955 Colorectal Cancer Screening: Colonoscopy 1955 DTaP,Tdap,and Td Vaccines (1 - Tdap) 02/09/1972 RSV Immunization Adult Patie nts (1 - Risk 50-74 years 1-dose series) 2003 Zoster Vaccines (1 of 2) 2003 Pneumococcal Vaccine: 50+ Ye ars (2 of 2 - PPSV23, PCV20, or PCV21) 04/05/2018 2018 Falls Risk Assessment 01/02/2024 Hepatitis C Screening 01/02/2024 Osteoporosis Screening (Bone Density Screening) 01/02/2024 Social Influencers of Health Screening 01/02/2024 Depression Screening 2024 COVID-19 Vaccine ( - 2023-2 5 season) 2024 Influenza Vaccine (#1) 2024 HIB Vaccines Aged Out No longer [...] age to complete this topic Care Teams Staff Psychiatrist Relationship Specialty Start Date [place] [address] PCP - General Internal Medicine 01/10/18
== END 2024-12-17 11:39 | disposition home or self-care (01) ==
LOC: HO.HPS 11:02
PROVIDERS: PCP Internal Medicine; Visit Provider Hospitalist
DX: J33.9 Nasal polyp, unspecified (principal); J45.50 Severe persistent asthma, uncomplicated; G47.33 Obstructive sleep apnea (adult) (pediatric); Z99.89 Dependence on other enabling machines and devices; R01.1 Cardiac murmur, unspecified
CPT/HCPCS: 99214; G2211

== ENCOUNTER → 2024-12-17 11:01 | Outpatient (BNVA) | payer OTHER, SELFPAY | PROVIDERS: PCP Internal Medicine; Visit Provider Hospitalist | DX: J45.50 Severe persistent asthma, uncomplicated (principal); J44.9 Chronic obstructive pulmonary disease, unspecified; J31.0 Chronic rhinitis; Z23 Encounter for immunization | CPT/HCPCS: 90471; 90656; 99212 ==